=== PATIENT | female | born 1965 | race Caucasian/White ===

== ENCOUNTER → 2016-11-06 | Outpatient (CLI) | payer BC | END | disposition home or self-care (01) | LOC: RES 11-05 09:47 | DX: J98.4 Other disorders of lung (principal); R94.2 Abnormal results of pulmonary function studies | CPT/HCPCS: 94070; 94726; 94729 ==

== ENCOUNTER 2017-09-18 13:52 | Emergency (ER) | payer BC ==
[~2017-09-18] VITALS: Ht 152.4 cm; Wt 69.9 kg
[2017-09-18 14:51] LABS: HEMATOCRIT 37.6 % (36.0-46.0); HEMOGLOBIN 12.7 G/DL (11.9-15.5); MCH 30.5 PG (29.0-34.0); MCHC 33.8 G/DL (30.0-36.0); MCV 90.4 FL (83-99); PLATELET COUNT 278 K/uL (156-360); RBC DIS.WIDTH-CV 12.7 % (11.8-14.6); RBC DIS.WIDTH-SD 42.1 % (39-53); RED BLOOD COUNT 4.16 M/uL (3.80-5.20); WHITE BLOOD COUNT 7.2 K/uL (4.1-10.2)
[2017-09-18 14:59] LABS: CHLORIDE 104 mEq/L (99-109); POTASSIUM 4.2 mEq/L (3.7-5.4); SODIUM 141 mEq/L (136-147)
[2017-09-18 15:01] LABS: GLUCOSE 127 mg/dL (70-99)
[2017-09-18 15:05] LABS: CREATININE 0.8 mg/dL (0.6-1.3); GFR ESTIMATE (CALCULATED) > 59 mL/min/
[2017-09-18 15:06] LABS: UREA NITROGEN (BUN) 19 mg/dL (9-23)
[2017-09-18 15:12] LABS: TROP-I INTERPRETATION NEGATIVE; TROPONIN-I 0.01 ng/mL (0.0-0.30)
[2017-09-18 19:00] VITALS: BP 135/72
== END 2017-09-18 19:01 | disposition home or self-care (01) ==
LOC: EME 13:52
DX: I10 Essential (primary) hypertension (principal); E78.5 Hyperlipidemia, unspecified; F41.9 Anxiety disorder, unspecified; F32.9 Major depressive disorder, single episode, unspecified; Z88.0 Allergy status to penicillin; Z88.2 Allergy status to sulfonamides; Z88.1 Allergy status to other antibiotic agents
CPT/HCPCS: 70450; 71046; 80048; 84484; 85027; 93005; 99281; 99284